=== PATIENT | female | born 1955 | race African-American/Black ===

== ENCOUNTER 2018-05-03 22:38 | Emergency (ER) | payer OTHER ==
[~2018-05-03] VITALS: Ht 165.1 cm; Wt 85.0 kg
[~2018-05-03 22:38] MED LIST: ASPIRIN; DIAZ5TAB4; ENALAPRIL; FLUTICASON; LEVOTHYROXINE; METFORMIN; PROAIR; SIMVASTATIN; TYLENOL
[2018-05-03 23:56] LABS: BASOPHILS % 0.7 % (0.0-2.0); EOSINOPHILS % 3.5 % (0.0-5.0); HEMATOCRIT. 37.5 % (36.0-48.0); HEMOGLOBIN. 12.7 g/dL (12.0-16.0); LYMPHOCYTES % 48.1 % (20.0-50.0); MEAN CORPUSCULAR HEMOGLOBIN 32.1 pg (28.0-32.0); MEAN CORPUSCULAR VOLUME 95.1 fL (81.0-99.0); MEAN PLATELET VOLUME 8.9 fl (7.4-10.4); MONOCYTES % 10.3 % (2.0-8.0); NEUTROPHILS % 37.4 % (40.0-76.0); PLATELET 325 x1000/uL (130-400); RED BLOOD CELL COUNT 3.95 mill/uL (4.2-5.4); RED CELL DISTRIBUTION WIDTH 14.8 % (11.6-14.6)
[2018-05-03 23:59] LABS: CHLORIDE 99 mEq/L (98-107)
[2018-05-04 00:02] LABS: INR 1.1; PROTHROMBIN TIME 10.6 sec (9.1-11.1)
[2018-05-04 00:09] LABS: T4 FREE 1.11 ng/dL (0.76-1.46)
[2018-05-04 00:26] LABS: CLARITY URINE CLEAR (CLEAR); COLOR URINE YELLOW (YELLOW); KETONES URINE NEGATIVE (NEGATIVE); LEUKOCYTE ESTERASE URINE 2+ (NEGATIVE); NITRITE URINE NEGATIVE (NEGATIVE); OCCULT BLOOD URINE NEGATIVE (NEGATIVE); PROTEIN URINE NEGATIVE (NEGATIVE); UROBILINOGEN URINE 0.2 E.U./dL (0.2-1.0)
[2018-05-04 01:31] VITALS: BP 150/71
== END 2018-05-04 01:45 | disposition home or self-care (01) ==
LOC: ER 22:38
DX: Z88.8 Allergy status to other drugs, medicaments and biological substances (principal); E11.649 Type 2 diabetes mellitus with hypoglycemia without coma; E78.00 Pure hypercholesterolemia, unspecified; E03.9 Hypothyroidism, unspecified; R79.1 Abnormal coagulation profile
CPT/HCPCS: 36415; 80053; 81003; 82962; 84439; 84443; 85025; 85610; 93005; 99285; Z7610

== ENCOUNTER 2018-12-27 16:58 | Emergency (ER) | payer OTHER ==
[~2018-12-27] VITALS: Ht 167.6 cm; Wt 85.0 kg
[2018-12-27] MEDS ORDERED: ACETAMINOPHEN 650MG SUPP PR ONE (18:45)
[2018-12-27 20:48] VITALS: BP 159/61
== END 2018-12-27 20:55 | disposition home or self-care (01) ==
LOC: ER 17:06
DX: S30.0XXA Contusion of lower back and pelvis, initial encounter (principal); W01.0XXA Fall on same level from slipping, tripping and stumbling without subsequent striking against object, initial encounter; Y93.01 Activity, walking, marching and hiking; Y92.480 Sidewalk as the place of occurrence of the external cause; M47.896 Other spondylosis, lumbar region; I10 Essential (primary) hypertension; E11.9 Type 2 diabetes mellitus without complications; E78.00 Pure hypercholesterolemia, unspecified; Z79.899 Other long term (current) drug therapy; Z79.84 Long term (current) use of oral hypoglycemic drugs; Z88.8 Allergy status to other drugs, medicaments and biological substances
CPT/HCPCS: 72100; 82962; 99283

== ENCOUNTER 2019-04-24 01:13 | Emergency (ER) | payer OTHER ==
[~2019-04-24] VITALS: Ht 165.1 cm; Wt 83.0 kg
[2019-04-24 01:51] LABS: HEMATOCRIT 31.3 % (36.0-48.0); HEMOGLOBIN 10.2 g/dL (12.0-16.0); MEAN CORPUSCULAR HEMOGLOBIN 26.7 pg (28.0-32.0); MEAN CORPUSCULAR VOLUME 81.8 fL (81.0-99.0); PLATELET 310 x1000/uL (130-400); RED BLOOD CELL COUNT 3.83 mill/uL (4.2-5.4); RED CELL DISTRIBUTION WIDTH 16.4 % (11.6-14.6)
[2019-04-24 01:57] LABS: CHLORIDE 102 mEq/L (98-107)
[2019-04-24 03:33] VITALS: BP 130/77
== END 2019-04-24 03:34 | disposition home or self-care (01) ==
LOC: ER 01:37
DX: M79.604 Pain in right leg (principal); J45.909 Unspecified asthma, uncomplicated; E11.9 Type 2 diabetes mellitus without complications; E78.00 Pure hypercholesterolemia, unspecified; I10 Essential (primary) hypertension; E03.9 Hypothyroidism, unspecified; Z87.891 Personal history of nicotine dependence; Z79.899 Other long term (current) drug therapy; Z88.8 Allergy status to other drugs, medicaments and biological substances
CPT/HCPCS: 36415; 85027; 93970; 99284

== ENCOUNTER 2020-03-30 09:06 | Emergency (ER) | payer OTHER ==
[~2020-03-30] VITALS: Ht 170.2 cm; Wt 84.0 kg
[2020-03-30 09:59] LABS: BASOPHILS % 1.1 % (0.0-2.0); EOSINOPHILS % 4.6 % (0.0-5.0); HEMATOCRIT. 34.8 % (36.0-48.0); LYMPHOCYTES % 38.8 % (20.0-50.0); MEAN CORPUSCULAR HEMOGLOBIN 32.7 pg (28.0-32.0); MEAN CORPUSCULAR VOLUME 94.9 fL (81.0-99.0); MEAN PLATELET VOLUME 8.7 fl (7.4-10.4); MONOCYTES % 10.6 % (2.0-8.0); NEUTROPHILS % 44.9 % (40.0-76.0); PLATELET 238 x1000/uL (130-400); RED BLOOD CELL COUNT 3.66 mill/uL (4.2-5.4); RED CELL DISTRIBUTION WIDTH 14.4 % (11.6-14.6)
[2020-03-30 10:06] LABS: CHLORIDE 104 mEq/L (98-107)
[2020-03-30 12:00] VITALS: BP 152/70
== END 2020-03-30 12:33 | disposition home or self-care (01) ==
LOC: ER 09:06
DX: E11.649 Type 2 diabetes mellitus with hypoglycemia without coma (principal); J45.909 Unspecified asthma, uncomplicated; E78.00 Pure hypercholesterolemia, unspecified; I10 Essential (primary) hypertension; E03.9 Hypothyroidism, unspecified; Z79.4 Long term (current) use of insulin; Z79.82 Long term (current) use of aspirin
CPT/HCPCS: 36415; 71045; 80053; 83880; 84484; 85025; 93005; 99285

== ENCOUNTER 2020-04-17 16:35 | Emergency (ER) | payer OTHER ==
[~2020-04-17] VITALS: Ht 165.1 cm; Wt 116.0 kg
[2020-04-17] MEDS ORDERED: FLUORESCEIN SODIUM 1MG/STRIP RIGHTEYE ONE (17:15)
[2020-04-17] MEDS ORDERED: TETRACAINE 0.5% OPHTH DROPS 4ML RIGHTEYE ONE (17:15)
[2020-04-17 18:26] VITALS: BP 125/91
== END 2020-04-17 18:28 | disposition home or self-care (01) ==
LOC: ER 16:35
DX: H10.501 Unspecified blepharoconjunctivitis, right eye (principal); E11.9 Type 2 diabetes mellitus without complications; E78.00 Pure hypercholesterolemia, unspecified; I10 Essential (primary) hypertension; Z88.8 Allergy status to other drugs, medicaments and biological substances
CPT/HCPCS: 99283